=== PATIENT | male | born 1965 | race Caucasian/White ===

== ENCOUNTER 2019-10-28 07:04 | Day surgery (SDC) | payer OTHER ==
[~2019-10-28 07:04] MED LIST: ceFAZolin/Water 2 GM/20 ML 2 GM/20 ML SYRINGE IV NR
[2019-10-28] MEDS ORDERED: LACTATED RINGERS 1,000 ML IV SCH (11:39)
[2019-10-28] MEDS ORDERED: fentaNYL 100 MCG/2 ML INJ IV PRN (13:03)
[2019-10-28] MEDS ORDERED: ONDANSETRON 4 MG/2 ML INJ IV PRN (13:03)
[2019-10-28] MEDS ORDERED: ACETAMINOPHEN 325 MG TAB PO NR (13:04)
[2019-10-28] MEDS ORDERED: MAGNESIUM OXIDE 400 MG TAB PO NR (13:04)
--- NOTE | 2019-10-28 13:04 | Anesthesia Day of Surgery ---
Anesthesia Day of Surgery - Day of Surgery Patient Examined: Yes Patient H&P Reviewed: Yes Patient is NPO: Yes
--- NOTE | 2019-10-28 13:18 | Anesthesia Consultation ---
Anesthesia Consult and Med Hx Date of service: 10/28/19 - Airway Anesthetic Teeth Evaluation: Partials ROM Head & Neck: Adequate Mental/Hyoid Distance: Adequate Mallampati Class: Class II Intubation Access Assessment: Good - Pre-Operative Health Status Proposed Anesthetic Plan: General - Pulmonary Hx Smoking: Yes (1/2 PPD) Hx Sleep Apnea: No (EDDIE PRE SCREEN HIGH RISK.) - Cardiovascular System Hx Hypertension: Yes Hx Heart Attack/AMI: No - Central Nervous System Hx Psychiatric Problems: No - Endocrine Hx Hypothyroidism: No Hx Hyperthyroidism: No - Hematic Hx Anemia: No Hx Sickle Cell Disease: No - Other Systems Hx Alcohol Use: No Hx Substance Use: No Hx Cancer: No - Additional Comments Anesthesia Medical History Comments: Son present to translate
[2019-10-28] MEDS ORDERED: LIDOCAINE MPF (2%) 20 MG/1 ML VIAL 5 ML ONE (16:25)
[2019-10-28] MEDS ORDERED: propofoL 200 MG/20 ML VIAL IV ONE (16:25)
[2019-10-28] MEDS ORDERED: HYDROmorphone 1 MG/1 ML INJ ONE (16:25)
--- NOTE | 2019-10-28 16:48 | Post Operative Note ---
Date of procedure: 10/28/19 Pre-op diagnosis: phimosis Post-op diagnosis: same Findings: severe Procedure: circ Anesthesia: GETA Surgeon: JACQUELINE BARAJAS Estimated blood loss: minimal Pathology: list (foreskin) Specimen disposition: to lab Condition: stable Disposition: PACU
--- NOTE | 2019-10-28 16:50 | Discharge Summary ---
Short Stay Discharge Plan Activity: other (ice in rr no sex ) Weight Bearing Status: Full Weight Bearing Diet: regular, low fat, low cholesterol, low salt Wound: open to air Special Instructions: other (as above) Durable Medical Equipment Needed Upon Discharge: other Follow up with: MANPREET PAULINO MD [Primary Care Provider] - 7 Days
[2019-10-28] MEDS ORDERED: BUPIVACAINE-EPINEPHRINE/PF 0.25%-1:200,000 (10 ML) VIAL INFILTRATI ONE (17:18)
[2019-10-28] MEDS ORDERED: NEOMY 3.5 MG/BACIT 400 UNITS/POLY B 5000 UNITS/GM OINT PACKET TP ONE (17:18)
[2019-10-28] MEDS ORDERED: BUPIVACAINE/PF (0.25%) 2.5 MG/ML 10 ML VIAL INFILTRATI ONE (17:19)
[2019-10-28] MEDS ORDERED: ONDANSETRON 4 MG/2 ML INJ ONE (17:37)
[2019-10-28] MEDS ORDERED: KETOROLAC 30 MG/1 ML INJ ONE (17:37)
--- NOTE | 2019-10-28 17:46 | Post Anesthesia Evaluation ---
- Post Anesthesia Evaluation Patient Participated: Yes Airway Patent: Yes Stable Respiratory Function: Yes Nausea/Vomiting: No Temp > 96.8F: Yes Pain Manageable: Yes Adequeate Hydration: Yes Anesthesia Complications: No
--- NOTE | 2019-10-28 17:59 | Operative Report ---
PREOPERATIVE DIAGNOSES: Severe phimosis, penile masses within the foreskin. POSTOPERATIVE DIAGNOSES: Severe phimosis, penile masses within the foreskin with rock-hard masses circumferentially, nodular, throughout the penile skin. PROCEDURE: Extreme circumcision with reconstruction. SURGEON: Dr. Cotton. ANESTHESIA: General. FINDINGS: This is a gentleman with severe phimosis. Dr. Mathias was going to do the procedure, but the cases were delayed for emergency, now presents for circumcision. DESCRIPTION OF PROCEDURE: The patient was brought to the operating room and placed on the operating table. Following induction of anesthesia, placed in supine position, prepped and draped in usual sterile fashion. Using a marking pencil, the penile skin was marked. We could not see the inner foreskin and we could not see the glans. A dorsal slit was carried out. Rock-hard nodules had to be cut with the knife and curved Oneil. We dissected this out with a curved Oneil and a cautery and a knife blade. It was hard to cut through. Minimal bleeding was encountered. It was almost like fibrotic nodules. The patient tolerated the procedure well. Once we got it all out, we had to reconstruct the skin and sutures were placed at 12, 3, 6, and 9 o'clock position and each quadrant was sutured with 3-0 chromic. The patient tolerated the procedure well and brought to recovery in stable condition. JOB# [id number] WINDY/TOMER
[2019-10-28 18:46] VITALS: BP 151/94
== END 2019-10-28 19:10 | disposition home or self-care (01) ==
LOC: OR 07:04
PROVIDERS: ATTEND Urology
DX: N47.1 Phimosis (principal); I10 Essential (primary) hypertension; E78.00 Pure hypercholesterolemia, unspecified; F17.210 Nicotine dependence, cigarettes, uncomplicated; Z79.899 Other long term (current) drug therapy; Z98.890 Other specified postprocedural states
CPT/HCPCS: 54161; 88304; J0690; J1170; J1885; J2405; J2704; J7120; A6250